=== PATIENT | female | born 1930 | race Caucasian/White ===

== ENCOUNTER 2017-11-14 08:26 | Day surgery (SDC) | payer MEDICARE, OTHER ==
[2017-11-09 15:50] LABS: Basophils # (auto) 0 uL; Basophils % (auto) 0.4 % (0.0-2.0); Eosinophils # (auto) 0.1 uL; Eosinophils % (auto) 2.6 % (0.0-7.0); Hemoglobin 11.6 g/dL (12.2-16.2); Lymphocytes # (auto) 1.4 uL; Lymphocytes % (auto) 28.6 % (10.0-50.0); Mean Corpuscular Hemoglobin 25.9 pg (28.0-32.0); Mean Corpuscular Hgb Conc. 31.3 g/dL (32.0-36.0); Mean Corpuscular Volume 82.5 fL (80.0-100.0); Monocytes # (auto) 0.4 uL; Monocytes % (auto) 7.7 % (0.0-12.0); Neutrophils % (auto) 60.7 % (37.0-80.0); Nucleated Red Blood Cells % 0.1 %; Platelet Count (auto) 237 10^3/uL (140-450); Red Blood Cells 4.49 10^6/uL (4.0-5.20); Red Cell Distribution Width 17.6 % (11.8-14.3); White Blood Cell 4.9 10^3/uL (4.4-10.8)
[2017-11-09 16:05] LABS: Albumin 3.6 g/dL (3.4-5.0); BUN/Creatinine Ratio 22.5; Calcium 10.2 mg/dL (8.5-10.1); INR 0.96 (0.9-1.15); Partial Thromboplastin Time 23.1 sec (22.64-33.71); Potassium 3.8 mmol/L (3.5-5.1); Prothrombin Time 10.5 sec (9.37-12.3)
[2017-11-09 16:09] LABS: Bilirubin, Total 0.4 mg/dL (0.2-1.0); Total Protein 7.2 g/dL (6.4-8.2)
[~2017-11-14] VITALS: Ht 149.9 cm; Wt 81.2 kg
[~2017-11-14 08:26] MED LIST: AMLO5TAB2 PO; DOCU100T15 PO; ESOM40CA39 PO; FURO40TA4 PO; LOSA25TA9 PO; METO-158 PO; NAP500T PO; POTA10TA34 PO; TOLT2CAP7 PO; TRAM50TA2 PO
[2017-11-14] MEDS ORDERED: ceFAZolin 1GM/50ML 50 ML IV ONE (08:35)
[2017-11-14] MEDS ORDERED: NEOMYCIN-BACITRACIN-POLYM 15GM TOP OINT TOP ONE (09:13)
[2017-11-14] MEDS ORDERED: ceFAZolin 1GM VL ONE (09:13)
[2017-11-14] MEDS ORDERED: BUPIVACAINE 0.75% INJ 10ML MPV SDV IJ ONE (09:13)
[2017-11-14] MEDS ORDERED: ONDANSETRON HCL 4 MG/2 ML VIAL IV ONE (09:15)
[2017-11-14] MEDS ORDERED: LABETALOL HCL 5 MG/ML 4ML SYRINGE IV PRN (09:15)
[2017-11-14] MEDS ORDERED: MIDAZOLAM HCL 1MG/1ML-2 ML VIAL IV PRN (09:15)
[2017-11-14] MEDS ORDERED: MORPHINE SULFATE 4 MG/ML SYR/VIAL IV PRN (09:15)
[2017-11-14] MEDS ORDERED: ePHEDrine SULFATE 50 MG/ML AMP IV PRN (09:15)
[2017-11-14] MEDS ORDERED: KETOROLAC TROMETH 30 MG/ML 1ML VIAL IV ONE (09:15)
[2017-11-14] MEDS ORDERED: MIDAZOLAM HCL 1MG/1ML-2 ML VIAL ONE (09:28)
[2017-11-14] MEDS ORDERED: MEPERIDINE HCL (50 MG/ML) 1 ML VIAL ONE (09:28)
[2017-11-14] MEDS ORDERED: fentaNYL CITRATE 100 MCG/2 ML VL ONE (09:28)
[2017-11-14] MEDS ORDERED: PROPOFOL 10 MG/ML 20 ML IV ONE (09:46)
[2017-11-14] MEDS ORDERED: DEXAMETHASONE SOD PHOS 10MG/1ML VIAL INJ ONE (09:46)
[2017-11-14 11:24] VITALS: BP 167/86
== END 2017-11-14 10:45 | disposition home or self-care (01) ==
LOC: SUR 08:26
PROVIDERS: ATTEND Podiatrist Foot & Ankle Surgery
DX: M20.5X1 Other deformities of toe(s) (acquired), right foot (principal); M25.571 Pain in right ankle and joints of right foot; L57.0 Actinic keratosis; E66.9 Obesity, unspecified; Z68.36 Body mass index [BMI] 36.0-36.9, adult; Z95.0 Presence of cardiac pacemaker; Z90.710 Acquired absence of both cervix and uterus; Z93.3 Colostomy status; H40.9 Unspecified glaucoma; I49.9 Cardiac arrhythmia, unspecified; D64.9 Anemia, unspecified; E78.5 Hyperlipidemia, unspecified
CPT/HCPCS: 28112; 28113; 36415; 80053; 85025; 85610; 85730; J0690; J1100; J2175; J2250; J2704; J3010; J3490